=== PATIENT | female | born 1970 | race Two or more races ===

== ENCOUNTER → 2024-07-12 07:34 | Outpatient (REF) | payer OTHER, SELFPAY | LOC: EMG 07:34 | PROVIDERS: ATTENDING PHYSICIAN Internal Medicine Rheumatology; FAMILY PHYSICIAN Internal Medicine | DX: R20.2 Paresthesia of skin (principal); M32.9 Systemic lupus erythematosus, unspecified | CPT/HCPCS: 95886; 95909 ==